=== PATIENT | female | born 1975 | race Caucasian/White ===

== ENCOUNTER 2023-07-20 12:14 | Outpatient (RCR) | payer OTHER, SELFPAY | END 2023-07-20 23:59 | disposition home or self-care (01) | LOC: RPT 12:14 | PROVIDERS: ATTENDING PHYSICIAN Orthopaedic Surgery Hand Surgery; FAMILY PHYSICIAN Nurse Practitioner Family | DX: S43.432D Superior glenoid labrum lesion of left shoulder, subsequent encounter (principal); Z73.6 Limitation of activities due to disability; M62.81 Muscle weakness (generalized); R20.0 Anesthesia of skin | CPT/HCPCS: 97110; 97112; 97140; 97162 ==

== ENCOUNTER 2023-08-05 10:06 | Outpatient (RCR) | payer OTHER, SELFPAY | END 2023-08-05 23:59 | disposition home or self-care (01) | LOC: RPT 10:06 | PROVIDERS: ATTENDING PHYSICIAN Orthopaedic Surgery Hand Surgery; FAMILY PHYSICIAN Nurse Practitioner Family | DX: S43.432D Superior glenoid labrum lesion of left shoulder, subsequent encounter (principal); M62.81 Muscle weakness (generalized); R20.0 Anesthesia of skin; M25.512 Pain in left shoulder; Z73.6 Limitation of activities due to disability | CPT/HCPCS: 97110; 97112; 97140 ==

== ENCOUNTER 2023-09-02 19:55 | Emergency (ER) | payer OTHER, SELFPAY ==
[2023-09-02 19:58] VITALS: BP 156/80
[2023-09-02 21:05] LABS: % Basophils 1.4 % (0-2); % Eosinophils 3.9 % (0-6); % Immature Granulocytes 0.3 % (0-0.5); % Lymphocytes 29.6 % (20.5-51.1); % Neutrophils 54.8 % (42.2-75.2); Absolute Basophils 0.1 10^3/uL (0-0.2); Absolute Eosinophils 0.3 10^3/uL (0-0.7); Absolute Lymphocytes 2.2 10^3/uL (1.2-3.4); Absolute Monocytes 0.7 10^3/uL (0.1-0.6); Absolute Neutrophils 4.1 10^3/uL (1.4-6.5); Hematocrit 31.2 % (37.0-47.0); Hemoglobin 10.6 g/dL (12.0-16.0); Mean Corpuscular Hgb 28.4 pg (27.0-31.0); Mean Corpuscular Volume 83.6 fL (81.0-99.0); Mean Platelet Volume 9.9 fL (7.4-10.4); Nucleated Red Blood Cells % 0 %; Platelet Count 299 10^3/uL (130-400); Red Blood Cell Count 3.73 10^6/uL (4.20-5.40); Red Cell Dist. Width 13.8 % (11.5-14.5); White Blood Cell Count 7.4 10^3/uL (4.8-10.8)
[2023-09-02 21:07] VITALS: BP 113/61; BMI 25.3
--- NOTE | 2023-09-02 21:08 | ED.GENMED ---
History of Present Illness
General
Chief Complaint: Abdominal Pain
Source: patient
Exam Limitations: none
Time Seen by Provider: 09/02/23 20:45
Travel History
Have you had any contact with someone who has COVID-19?: No
Do you have any symptoms of coronavirus? Fever > 100 degrees, chills, cough, shortness of breath, sore throat, loss of taste or smell, muscle aches, or headache?: No
History of Present Illness
History of Present Illness:
This is a 48 year old female that comes in with c/o lower abd pain. State that today she had this sharp lower abd pain that lasted for about 5 min. States that she also had it earlier today but that was only about 1 min. States that this started on
July with the same sharp pain that lasted for 45min and the pain was so bad that she laid on the bathroom floor, was nauseated, got the sweats and then chills. States that the pain then went away. States that she called the PCP and they thought
it could have been something viral. States that in 24 hours she felt better but her abd was tender and she walked hunched over for 2 days. States that this was about 3.5 weeks ago. States that she also saw her ORGANIZATIONAL CONSULTANT on August 19 and she wanted her
to have an US but patient was unable to get in for the US. States that last week she had the pain for 1 min before having a BM Patient went to see her PCP on August 26 and there was some blood in her urine. Denies any fever, chills, chest pain, SOB,
nausea, vomiting, diarrhea, headache, dizziness, urinary burning.
Past History
Past History
ED Past Medical History: None
ED Past Surgical History: Other (Liposuction)
Social History
Tobacco: Non-smoker
Alcohol: Occasional
Drug: None
Personal:
Living: with family
Employment: Employed
Review of Systems
Review of Systems
All Other Systems: ROS reviewed and negative except as documented in HPI and ROS
Constitutional: Reports no symptoms; Denies fever or chills
EENT: Reports no symptoms
Respiratory: Reports no symptoms; Denies cough or trouble breathing
Cardiac: Reports no symptoms; Denies chest pain
ABD/GI: Reports abdominal pain; Denies nausea, vomiting or diarrhea
: Reports no symptoms; Denies dysuria, frequency or urgency
Musculoskeletal: Reports no symptoms
Skin: Reports no symptoms
Neurological: Reports no symptoms; Denies dizzy or headache
Psychiatric: Reports no symptoms
Phy Exam
General Physical Exam
General Presentation: well appearing and no apparent distress
General age: appears stated age
General Skin: warm and dry
General Habitus: normal
General Mental: alert
General Hydration: appears well hydrated
ENT Exam
ENT Exam: TM's normal, pharynx normal and neck supple
Eye Exam
Eye Exam: EOMI
Cardiovascular Exam
Cardiovascular Exam: regular rate/rhythm, no edema, no murmur and normal peripheral pulses
Pulmonary Exam
Pulmonary Exam: lungs clear, no respiratory distress, no rales, chest non tender, no crackles, no rhonchi, no wheezing and no cough
Gastrointestinal Exam
Gastrointestinal Exam: normal bowel sounds, soft, no organomegaly, no pulsatile mass, non distended and tender (Left sided tenderness with palpation)
Musculoskeletal Exam
Musculoskeletal Exam: full ROM and no edema
Skin Exam
Skin Exam: normal color, warm/dry, no rash and no petechia
Psychiatric Exam
Psychiatric Exam: normal mood/affect
Course
Orders/Labs/Results
Orders:
Orders
09/02/23 20:50
Test Result ONCE
09/02/23 20:54
Complete Blood Count/With Diff Urgent
09/02/23 20:55
Comprehensive Metabolic Panel Urgent
HCG, Serum Qualitative Screen Urgent
Lipase Urgent
09/02/23 20:57
0.9% Sodium Chloride 1000 ml [Nss] 1,000 ml IV BOLUS
Iohexol [Omnipaque] See Protocol PO NOW STA
US Pelvis W Transvag Combined Urgent
Reason For Exam: Lower abd pain
09/02/23 20:58
CT Abd/pel W Iv And Oral Contr Urgent
Comment:
Reason For Exam: Lower abd tenderness
09/02/23 21:08
Urinalysis Reflex To Culture Urgent
Date Specimen was Collected: 09/02/23
Time Specimen was Collected: 21:56
09/03/23 00:03
Urine Microscopic Reflex Cult Urgent
Abnormal Lab Results
09/02/23 09/02/23 09/03/23
20:54 20:55 00:03
RBC 3.73 L 10^6/uL
(4.20-5.40)
Hgb 10.6 L g/dL
(12.0-16.0)
Hct 31.2 L %
(37.0-47.0)
Absolute Monos (auto) 0.7 H 10^3/uL
(0.1-0.6)
Monocytes % 10.0 H %
(1.7-9.3)
BUN 19 H mg/dl
(7-17)
Ur Occult Blood Reflex 4+ A
(Negative)
Leukocyte Esterase Rfl Trace A
(Negative)
Urine RBC >100 A /HPF
(0-2)
Urine Bacteria (Reflex) Few A
(Negative)
09/02/23 20:54
09/02/23 20:55
H/H slightly low. Dehydration, Urine negative for infection. Lipase normal t 95, HCG negative.
Vital Signs
Initial and Last Documented VS:
Initial Vital Signs
Temp Pulse Resp BP Pulse Ox
98.4 F 78 16 156/80 99
09/02/23 19:58 09/02/23 19:58 09/02/23 19:58 09/02/23 19:58 09/02/23 19:58
Last Documented Vital Signs
Temp Pulse Resp BP Pulse Ox
98.4 F 54 16 113/61 97
09/02/23 19:58 09/02/23 21:07 09/02/23 21:07 09/02/23 21:07 09/02/23 21:07
MDM/Problems Addressed
Differential Diagnosis Includes:
Ovarian cyst, Diverticulitis, enteritis, UTI
MDM/Problems Addressed:
This is a 48 year old female that comes in with c/o lower abd pain. States that this has been coming an going for the past 3.5 weeks. States that the first time it lasted for 45 min and then today she has had the pain twice. First for about 1 min
and then 5 min. Patient has seen her PCP and her ORGANIZATIONAL CONSULTANT and they her to have an US but she was unable to get in.
Will check labs. Urine. US and CT scan.
Back into see patient. Explained that her US and CT shows a large uterine fibroid. Patient to follow up with the ORGANIZATIONAL CONSULTANT. This is most likely the cause of her pain. Patient can use Tylenol or Ibuprofen for pain. Heating pain if needed to help with
any discomfort. Return with any concerns
Chronic conditions affecting care:
NA
Acute Exacerbation and/or Progression of Chronic Illness:
NA
*Radiology
Radiology exam reviewed: radiology read reviewed (US-Myomatous uterus with largest fibroid measuring up to 6.7cm. Endometrium difficulty to clearly delineate. 2.2cm hemorrhagic follicle right ovary. Left ovary with dominant follicular cyst. Normal
ovarian vascular flow bilaterally. No pelvic free fluid. Debris within the bladder. ) and all reviewed NAD by ED Provider (CT scan night hawk-Large fundal uterine fibroid. Ovaries with dominant follicles. Stool-filled colon. NO bowel wall
thickening, obstruction, abscess of free air. Normal appendix right lower quadrant. Nonspecific periportal edema in the liver. Remainder of abd organs without acute abnormality. )
*Pulse Oximetry
Patient hypoxic: no
*EKG
Interpreted by ED Provider?: NA
Rate: EKG- N/A
*Rehabilitation Center Manager Interpretation
Rate: Rehabilitation Center Manager- N/A
*Critical Care Note
Total Time (30-74mins, 75-104mins- exclusive of procedures): Not Applicable
ED Attending Note
-
Portions of this chart may have been created with voice recognition software.� Occasional wrong word or��sound alike� substitutions may have occurred due to the inherent limitations of voice recognition software.
Discharge Plan
Departure
Patient Disposition: Home (Routine Discharge)
Date of Disposition: 09/03/23
Time of Disposition: 00:52
Patient with high blood pressure during this ER visit?: No
Condition: Good
Covid-19: Not Applicable
Discharge Problem:
Uterine fibroid
Instructions: Uterine Fibroids (DC)
Prescriptions:
No Action
prenat.vits,rylan,coi-uvkl-duelk [ Vitamin] 1 TAB tablet
1 tab PO
Referrals:
Espinoza Jones MD [Family Provider] -
Activity Restrictions/Additional Instructions:
As discussed, your blood work shows very slight Dehydration, otherwise this is normal. Your US and CT scan shows that you have a large Uterine Fibroid. This is most likely the cause of your pain. Please follow up with the ORGANIZATIONAL CONSULTANT for further
evaluation and treatment. You may use Tylenol and alternate with Ibuprofen for pain. Heating pad sometimes helps with discomfort. Please increase your water intake to 8-8oz glasses daily. IF YOU HAVE INCREASED OR CHANGING PAIN, OR YOU HAVE ANY OTHER
CONCERNS PLEASE RETURN TO THE EMEREGNCY ROOM.
Interventions
Interventions:
*Risk Screen - Suicide Last Done: 09/02/23 19:58
*General Assessment Last Done: 09/02/23 19:58
*Neglect/Abuse Screening Last Done: 09/02/23 19:58
RN-Vsyzst-Tcvvhendef Assessment Last Done: 09/02/23 20:55
Discharge Date and Time
Print Language: LAO
[2023-09-02] MEDS: NSS 1000 IV (21:10)
[2023-09-02 21:14] LABS: HCG, Serum Qualitative Screen Negative
[2023-09-02 21:20] LABS: ALT (SGPT) 10 U/L (0-35); AST (SGOT) 22 U/L (14-36); Alkaline Phosphatase 72 U/L (38-126); Blood Urea Nitrogen 19 mg/dl (7-17); Calcium 9.3 mg/dl (8.4-10.2); Carbon Dioxide 28 mmol/L (22-30); Chloride 105 mmol/L (98-107); Estimated Creatinine Clearance 78 ml/min; Glucose 97 mg/dl (70-99); Lipase 95 U/L (23-300); Potassium 4.3 mmol/L (3.5-5.1); Sodium 139 mmol/L (135-145); Total Bilirubin 0.3 mg/dl (0.2-1.3); eGFR > 60.00
[2023-09-02] MEDS: OMNIPAQUE 50 ML PO (21:26)
[2023-09-03 00:14] LABS: Urine Albumin Negative (Neg - Trace); Urine Bilirubin Negative (Negative); Urine Character Slightly Cloudy (Clear); Urine Color Yellow; Urine Glucose Negative (Negative); Urine Ketone Negative (Negative); Urine Leukocyte Trace (Negative); Urine Nitrite Negative (Negative); Urine Occult Blood 4+ (Negative); Urine Specific Gravity 1.015 (<1.030); Urine Urobilinogen Negative (Neg - 1+)
[2023-09-03 00:43] LABS: Urine Squamous Cell 21-25 /LPF (Few)
[2023-09-03 00:44] LABS: Urine Bacteria Few (Negative); Urine Red Blood Cell >100 /HPF (0-2)
[2023-09-03 01:17] VITALS: BP 120/77
== END 2023-09-03 01:19 | disposition home or self-care (01) ==
LOC: EMR 19:55
PROVIDERS: Clinical Nurse Specialist Family Health; EMERGENCY PHYSICIAN Emergency Medicine; FAMILY PHYSICIAN Family Medicine
DX: D25.9 Leiomyoma of uterus, unspecified (principal); E86.0 Dehydration
CPT/HCPCS: 99284; 96360; 74177; 76830; 76856; 80053; 81003; 81015; 83690; 84703; 85025; Q9967

== ENCOUNTER → 2023-11-16 09:05 | Outpatient (REF) | payer OTHER, SELFPAY | LOC: HWRAD 09:05 | PROVIDERS: ATTENDING PHYSICIAN Obstetrics & Gynecology; FAMILY PHYSICIAN Family Medicine | DX: D25.1 Intramural leiomyoma of uterus (principal) | CPT/HCPCS: 76830; 76856 ==

== ENCOUNTER → 2023-11-26 07:51 | Outpatient (REF) | payer OTHER, SELFPAY | LOC: MRI 3T 07:51 | PROVIDERS: ATTENDING PHYSICIAN Obstetrics & Gynecology; FAMILY PHYSICIAN Family Medicine | DX: R93.89 Abnormal findings on diagnostic imaging of other specified body structures (principal); D25.1 Intramural leiomyoma of uterus | CPT/HCPCS: 72197; A9575 ==

== ENCOUNTER → 2023-12-25 11:24 | Outpatient (REF) | payer OTHER, SELFPAY | LOC: RADI 11:24 | PROVIDERS: ATTENDING PHYSICIAN Obstetrics & Gynecology; FAMILY PHYSICIAN Family Medicine | DX: D25.9 Leiomyoma of uterus, unspecified (principal) ==

== ENCOUNTER 2024-02-01 09:04 | Day surgery (SDC) | payer OTHER, SELFPAY ==
[2024-02-01] VITALS (14 sets, daily range): BP systolic 64–135; BP diastolic 57–76
[2024-02-01 07:27] LABS: Hematocrit 36.8 % (37.0-47.0); Hemoglobin 12.4 g/dL (12.0-16.0); Mean Corp Hgb Conc. 33.7 g/dL (33.0-37.0); Mean Corpuscular Hgb 28.3 pg (27.0-31.0); Mean Platelet Volume 9.3 fL (7.4-10.4); Platelet Count 328 10^3/uL (130-400); Red Blood Cell Count 4.38 10^6/uL (4.20-5.40); Red Cell Dist. Width 13.7 % (11.5-14.5)
[2024-02-01 07:28] LABS: HCG, Urine Qualitative Screen Negative
[2024-02-01 08:11] LABS: Blood Urea Nitrogen 20 mg/dl (7-17)
[2024-02-01 08:42] LABS: INR 0.95; PT 13.1 Sec (11.4-14.6)
[2024-02-01] MEDS: DECADRON 10 MG IV (08:48)
[2024-02-01] MEDS: BENADRYL 25 MG IV (08:48)
[2024-02-01] MEDS: OXYCONTIN (CONTROLLED RELEASE) 10 MG PO (08:49)
[2024-02-01] MEDS: ZOFRAN 8 MG PO (08:49)
[2024-02-01] MEDS: ANCEF 10 IV (09:04)
[2024-02-01] MEDS: NSS 1000 IV (11:01)
[2024-02-01] MEDS: DILAUDID 0.5 MG IV (11:41)
[2024-02-01] MEDS: TORADOL 10 MG IV ×2 (14:52→21:04)
[2024-02-01] MEDS: ROXICODONE 5 MG PO ×2 (16:10→20:12)
--- NOTE | 2024-02-01 18:19 | W.PN.UPDATE ---
Update Note
Progress Note Update
Doing well post uterine artery embolization. Up in chair having dinner. Mild cramping, no pain R groin. Good appetite. R CF arteriotomy site with dry dressing, no hematoma. Cisneros to be removed this evening. Expect DC AM.
--- NOTE | 2024-02-01 19:28 | PTCARENOTE ---
Cisneros removed, pt DTV 02/02/24 @ [id number]
[2024-02-02] VITALS: BP 121/60
[2024-02-02] MEDS: NSS 1000 IV (01:37)
[2024-02-02] MEDS: ROXICODONE 5 MG PO ×2 (01:39→08:09)
[2024-02-02 03:00] VITALS: BP 111/60
[2024-02-02] MEDS: TORADOL IV (05:58)
--- NOTE | 2024-02-02 07:57 | W.PN.GENERIC ---
Assessment / Plan
-
48 yo female with history of uterine fibroids s/p UAE
She is having some abdominal cramping as expected.
She is tolerating POs
She is voiding spontaneously
She is stable for discharge today
I spent over 30 minutes in counseling and coordination of care with the patient, reviewing previous medical records, laboratory studies and relevant imaging as well as discussing the procedure, expected outcome and discharge instructions with the
patient
Physician Progress Note
Subjective
Velvet is a 48-year-old female with past medical history of symptomatic uterine fibroids and IBS. She's been experiencing intermittent abdominal pain as well as pelvic pressure and abdominal bloating. She has bulk symptoms including urinary
frequency. She underwent UAE yesterday. She is having some cramping which is to be expected. She is toerating POs. She is voiding spontaneously. She denies fever chills, nausea vomiting or dysuria. She had some painless hematuria.
PMH: IBS.
Social History: Patient is a nonsmoker. She occasionally drinks alcohol. She is and lives with her husban
Allergies: NKDA.
Current Medications: Bentyl 10 mg prn and multivitamin.
Objective
Vital Signs
Temp Pulse Resp BP Pulse Ox
98.4 F 63 18 111/60 96
02/02/24 03:00 02/02/24 03:00 02/02/24 03:00 02/02/24 03:00 02/02/24 03:00
Lab Results
02/01/24 07:14
02/01/24 07:14
Physical examination: This is a well-nourished, well-developed 48-year-old female who is awake, alert and oriented in no acute distress. Her color is good. Her skin is warm and dry. Her neck is supple without thyromegaly. Her heart is regular. Her
lungs are clear throughout. Her abdomen is soft and mildly distended with bowel sounds present. Right groin dressing CDI. No hematoma. Palpable inguinal and pedal pulses. No lower extremity edema. No calf pain
[2024-02-02 08:00] VITALS: BP 105/58
[2024-02-02] MEDS: NSS IV (08:04)
[2024-02-02] MEDS: TORADOL 10 MG IV (08:09)
[2024-02-02] MEDS: AFLURIA (36 mos+) 2024-2025 FORMULA 0.5 ML IM (08:49)
--- NOTE | 2024-02-02 10:09 | CM ---
CM reviewed chart, patient admitted for SDS. Patient discharged prior to CM coming to floor.
Plan; home no needs.
== END 2024-02-02 09:48 | disposition home or self-care (01) ==
LOC: RADI 09:04
PROVIDERS: ATTENDING PHYSICIAN Radiology Vascular & Interventional Radiology; FAMILY PHYSICIAN Family Medicine; REFERRING PHYSICIAN Obstetrics & Gynecology
DX: D25.9 Leiomyoma of uterus, unspecified (principal); N92.1 Excessive and frequent menstruation with irregular cycle; R35.0 Frequency of micturition
CPT/HCPCS: 37243; 36246; 36415; 75736; 76937; 81025; 82565; 84520; 85027; 85610; 90686; 99152; 99153; C1769; C1887; G0008

== ENCOUNTER → 2025-01-09 07:53 | Outpatient (REF) | payer OTHER, SELFPAY | LOC: HWRAD 07:53 | PROVIDERS: ATTENDING PHYSICIAN Obstetrics & Gynecology; FAMILY PHYSICIAN Family Medicine | DX: D25.9 Leiomyoma of uterus, unspecified (principal) | CPT/HCPCS: 76830; 76856 ==

== ENCOUNTER → 2025-03-08 08:36 | Outpatient (REF) | payer OTHER, SELFPAY | LOC: PAVMRI 08:36 | PROVIDERS: ATTENDING PHYSICIAN Obstetrics & Gynecology; FAMILY PHYSICIAN Family Medicine | DX: D25.9 Leiomyoma of uterus, unspecified (principal); N83.209 Unspecified ovarian cyst, unspecified side | CPT/HCPCS: 72197; A9575 ==